=== PATIENT | female | born 1955 | race Caucasian/White ===

== ENCOUNTER 2018-07-13 11:25 | Inpatient (IN) | payer MEDICARE, OTHER ==
[2018-07-13 12:00] LABS: URINE SOURCE CLEAN C
[2018-07-13 12:02] LABS: % BASOPHILS 0.5 % (0.0-2.0); % EOSINOPHILS 1.7 % (0.0-5.0); % LYMPHOCYTES 19.8 % (20.0-50.0); % MONOCYTES 8.1 % (2.0-10.0); % NEUTROPHILS 69.9 % (40.0-80.0); EOSINOPHILE ABSOLUTE 0.2 Th/cmm (0.1-0.4); HEMATOCRIT 45.2 % (41.0-60); HEMOGLOBIN 14.7 gm/dL (12-16); LYMPHOCYTE ABSOLUTE 1.9 Th/cmm (1.5-3.0); MEAN CELL VOLUME 87.6 fl (81-100); MEAN CORPUSCULAR HEMOGLOBIN 28.5 pg (27.0-31.0); MEAN CORPUSCULAR HGB CONC 32.5 pg (28.0-36.0); MEAN PLATELET VOLUME 9.8 fl; MONOCYTE ABSOLUTE 0.8 Th/cmm (0.3-1.0); NEUTROPHILE ABSOLUTE 6.8 Th/cmm (1.8-8.0); PLATELET COUNT 323 Th/cmm (150-400); RED BLOOD COUNT 5.16 Mil/cmm (3.80-5.10); RED CELL DISTRIBUTION WIDTH 11.7 % (11.5-20.0); WHITE BLOOD COUNT 9.7 Th/cmm (4.8-10.8)
[2018-07-13 12:09] LABS: URINE BILIRUBIN NEGATIVE (NEGATIVE); URINE BLOOD NEGATIVE (NEGATIVE); URINE GLUCOSE (UA) NEGATIVE (NEGATIVE); URINE KETONE NEGATIVE (NEGATIVE); URINE LEUKOCYTE ESTERASE NEGATIVE (NEGATIVE); URINE NITRATE NEGATIVE (NEGATIVE); URINE PH 6.5 (4.6 - 8.0); URINE PROTEIN NEGATIVE (NEGATIVE); URINE UROBILINOGEN 0.2 E.U./dL (0.2 - 1.0)
[2018-07-13 12:13] LABS: URINE CLARITY CLEAR (CLEAR); URINE COLOR YELLOW; URINE MICROSCOPIC INDICATED? NO
--- NOTE | 2018-07-13 12:19 | ED Physician Chart ---
ED Chief Complaint/HPI - Patient Information Date Seen:: 07/13/18 Time Seen:: 11:45 Chief Complaint:: Agitation History of Present Illness:: onset x 3 days of agitation and aggressive behavior; no report of trauma, LOC, H /As, SIs, neck pain, cough, C/P, SOB, Abd. Pain, A/N/V/D/C, fever, chills, or urinary s/s; pt is post-menopausal; Allergies:: Allergies Allergy/AdvReac Type Severity Reaction Status Date / Time No Known Allergies Allergy Verified 07/13/18 11:48 Vitals:: Vital Signs - 8 hr 07/13/18 11:45 Temp 98.1 F HR 91 RR 18 BP 141/76 O2 Sat % 97 Historian:: Patient, Family Member Review:: Nurse's Note Reviewed ED Review of Systems - Review of Systems General/Constitutional: No fever, No chills, No weight loss, No weakness, No diaphoresis, No edema, No loss of appetite Skin: No skin lesions, No rash, No bruising Head: No headache, No light-headedness Eyes: No loss of vision, No pain, No diplopia ENT: No earache, No nasal drainage, No sore throat, No tinnitus Neck: No neck pain, No swelling, No thyromegaly, No stiffness, No mass noted Cardio Vascular: No chest pain, No palpitations, No PND, No orthopnea, No edema Pulmonary: No SOB, No cough, No sputum, No wheezing GI: No nausea, No vomiting, No diarrhea, No pain, No melena, No hematochezia, No constipation, No hematemesis G/U: No dysuria, No frequency, No hematuria, No nacturia [employer]: No vaginal discharge, No abnormal vaginal bleed, No contraction Musculoskeletal: No bone or joint pain, No back pain, No muscle pain Endocrine: No polyuria, No polydipsia Psychiatric: Prior psych history, No depression, Anxiety, No suicidal ideation, No homicidal ideation, Auditory hallucination, No visual hallucination Hematopoietic: No bruising, No lymphadenopathy Allergic/Immuno: No urticaria, No angioedema Neurological: No syncope, No focal symptoms, No weakness, No paresthesia, No headache, No seizure, No dizziness, No confusion, No vertigo ED Past Medical History - Past Medical History Obtainable: Yes Past Medical History: HTN, Asthma/COPD, Seizures Family History: HTN Social History: Non Smoker, Alcohol, No Drug Use, Single, Care Facility Surgical History: None Psychiatricy History: Schizophrenia Medication: Reviewed Family Medical History - Family Member Mother History Unknown: Yes ED Physical Exam - Physical Examination General/Constitutional: Awake, Well-developed, well-nourished, Alert, No distress, GCS 15, Non-toxic appearing, Ambulatory Head: Atraumatic Eyes: Lids, conjuctiva normal, PERRL, EOMI Skin: Nl inspection, No rash, No skin lesions, No ecchymosis, Well hydrated, No lymphadenopathy ENMT: External ears, nose nl, TM canals nl, Nasal exam nl, Lips, teeth, gums nl , Oropharynx nl, Tonsils nl Neck: Nontender, Full ROM w/o pain, No JVD, No nuchal rigidity, No bruit, No mass, No stridor Respiratory: Nl effort/Exclusion, Clear to Auscultation, No Wheeze/Rhonchi/Rales Cardio Vascular: RRR, No murmur, gallop, rubs, NL S1 S2, Carotid/Femoral/Distal pulses equal bilaterally GI: No tenderness/rebounding/guarding, No organomegaly, No hernia, Normal BS's, Nondistended, No mass/bruits, No McBurney tenderness Other GI comments:: no pulsatile masses : No CVA tenderness Extremities: No tenderness or effusion, Full ROM, normal strength in all extremities, No edema, Normal digits & nails Neuro/Psych: Alert/oriented, DTR's symmetric, Normal sensory exam, Normal motor strength, Judgement/insight normal, Mood normal, Normal gait, No focal deficits Other Neuro/Psych comments:: MSE: + Psychomotor Agitation; no SIs; Mood/Affect: Labile Misc: Normal back, No paraspinal tenderness ED Labs/Radiology/EKG Results - Lab Results Results: Laboratory Tests 07/13/18 07/13/18 11:45 11:50 WBC 9.7 RBC 5.16 H Hgb 14.7 Hct 45.2 MCV 87.6 MCH 28.5 MCHC Differential 32.5 RDW 11.7 Plt Count 323 MPV 9.8 Neutrophils % 69.9 Lymphocytes % 19.8 L Monocytes % 8.1 Eosinophils % 1.7 Basophils % 0.5 Urine Source CLEAN C Urine Color YELLOW Urine Clarity CLEAR Urine pH 6.5 Ur Specific [place] 1.020 Urine Protein NEGATIVE Urine Glucose (UA) NEGATIVE Urine Ketones NEGATIVE Urine Blood NEGATIVE Urine Nitrate NEGATIVE Urine Bilirubin NEGATIVE Urine Urobilinogen 0.2 Ur Leukocyte Esterase NEGATIVE Comments:: Reviewed - EKG Interpretations EKG Time:: 12:02 Rate & Rhythm: 85; NSR Comments:: non-specific st-t changes ED Septic Shock - . Is Septic Shock (SBP<90, OR Lactate>4 mmol\L) present?: No - <6hrs of presentation: Vital Signs: Vital Signs - 8 hr 07/13/18 11:45 Temp 98.1 F HR 91 RR 18 BP 141/76 O2 Sat % 97 ED Reassessment (Disposition) - Reassessment Reassessment Condition:: Improved - Diagnosis Diagnosis:: Dx: Agitation; Medical Clearance; Psychosis; Schizophrenia; Bipolar Disorder - Aftercare/Follow up Instructions Aftercare/Follow-Up Instructions:: Counseled pt regarding lab results/diagnosis & need follow up, Counseled pt & family regarding lab results/diagnosis & need follow up - Patient Disposition Discharge/Transfer:: Acute Care w/in this hosp Admitted to:: [facility] Condition at Disposition:: Stable, Improved
[2018-07-13 12:25] LABS: ALB/GLOB RATIO 1.4 (1.0-1.8); ALBUMIN 4.4 gm/dL (3.7-5.3); ALKALINE PHOSPHATASE 78 U/L (34-104); ANION GAP 13.3 (7.0-16.0); BILIRUBIN,TOTAL 0.5 mg/dL (0.3-1.0); BUN - UREA NITROGEN 11 mg/dL (7-25); CALCIUM SERUM 10.3 mg/dL (8.6-10.3); CARBON DIOXIDE 32.9 mEq/L (21.0-31.0); CHLORIDE 95 mEq/L (98-107); CHOLESTEROL 218 mg/dL (<200); CREATININE - SERUM 0.5 mg/dL (0.6-1.2); GFR AFRICAN-AMERICAN > 60.0 ml/min (>90); GFR NON AFRICAN-AMERICAN > 60.0 ml/min; GLUCOSE 110 mg/dL (70-105); HDL -HIGH DENSITY LIPOPROTEIN 44 mg/dL (23-92); POTASSIUM SERUM 4.2 mEq/L (3.5-5.1); SGOT 11 U/L (13-39); SGPT/ALT 13 U/L (7-52); SODIUM SERUM 137 mEq/L (136-145); TOTAL PROTEIN,SERUM 7.5 gm/dL (6.0-8.3); TRIGLYCERIDES 140 mg/dL (<150)
[2018-07-13 12:28] LABS: ACETAMINOPHEN < 10.0 ug/mL (10.0-30.0); SALICYLATES (ASPIRIN) < 25.0 mg/L (30.0-100.0)
[2018-07-13] MEDS ORDERED: Pneumococcal Vaccine 0.5 mL Vial IM ONE (14:37)
[2018-07-13 14:45] VITALS: BP 126/68
[2018-07-13] MEDS ORDERED: Ipratropium Neb 0.5 mg/2.5 mL UD HHN PRN (14:47)
[2018-07-13] MEDS ORDERED: Magnesium Hydroxide (MOM) 30 mL UDC PO PRN (15:00)
[2018-07-13] MEDS ORDERED: Maalox 30 mL Cup PO PRN (15:00)
[2018-07-13 15:18] LABS: CHOLESTEROL 217 mg/dL (<200); HDL -HIGH DENSITY LIPOPROTEIN 46 mg/dL (23-92); TRIGLYCERIDES 141 mg/dL (<150)
[2018-07-13] MEDS: Atorvastatin Calcium 10 MG TAB PO SCH (20:34)
[2018-07-14] MEDS: Pantoprazole 40 mg EC Tab PO SCH (09:01)
[2018-07-14] MEDS: Ferrous Sulfate 325 MG TAB PO SCH (09:01)
[2018-07-14] MEDS: Multivitamin Tab PO SCH (09:02)
--- NOTE | 2018-07-14 19:45 | History & Physical ---
ADMIT DATE: 07/14/2018 CHIEF COMPLAINT: Agitation. HISTORY OF PRESENT ILLNESS: The patient is a 63-year-old female with past medical history of hypertension, asthma, COPD, seizure disorder, admitted for agitation and aggressive behavior for last 3 days. It was not getting better with conservative management. The patient was brought to the ER for further admission to the [facility] and management. Otherwise, vitals were stable and labs shows no acute abnormality. PAST MEDICAL HISTORY: Hypertension, seizure disorder, COPD, asthma. ALLERGIES: NKDA. MEDICATIONS: See medication reconciliation sheet. FAMILY HISTORY: Mother had hypertension. SOCIAL HISTORY: The patient lives at a care facility. Single. Nonsmoker. No use of alcohol, no drug use. PAST SURGICAL HISTORY: None. PSYCHIATRIC HISTORY: Schizophrenia. REVIEW OF SYSTEMS: GENERAL: The patient has no fever, no chills, no generalized weakness. HEENT: No diplopia, no photophobia, no sore throat, no congestion. RESPIRATORY: No cough, no shortness of breath. CARDIOVASCULAR: No chest pain or palpitation. GASTROINTESTINAL: No nausea, no vomiting, no diarrhea, no constipation. GENITOURINARY: No dysuria. NEUROLOGIC: No headache, no dizziness, no focal weakness. PHYSICAL EXAMINATION: VITAL SIGNS: Shows temperature is 98.3, pulse 87, respiration is 16, blood pressure 107/61. GENERAL: The patient is comfortable, lying in the bed, not in acute distress. Well nourished, well developed. HEENT: Head normocephalic and atraumatic. Oral cavity moist, pink tongue. Eyes: No pallor, no icterus. PERRLA, EOMI. NECK: Supple, no JVD, no bruit. Trachea in midline. CHEST: Bilateral breath sounds. No crackles or wheezing. HEART: S1, S2 within normal limits. Regular rhythm. No murmur or gallop. ABDOMEN: Soft, nontender, nondistended. Bowel sounds present. EXTREMITIES: No cyanosis, no clubbing, no edema. NEUROLOGICAL: Alert and awake. LABORATORY DATA: Current lab shows WBC count is 9700, hemoglobin 14.7, hematocrit 45.2, platelets are 322,000. Neutrophil percentage 69.8%. Sodium 137, potassium 4.2, chloride 95, bicarbonate is 23, BUN is 11, creatinine 0.5, glucose is 110. RPR is nonreactive. Urinalysis negative. Nitrite negative leukoesterase. MRSA screen is negative. IMPRESSION: 1. Agitation. 2. Hypertension, well controlled. 3. Asthma, COPD. 4. Seizure disorder. RECOMMENDATION: Continue same management. JOB# [id number] MTDD
[2018-07-14] MEDS: Atorvastatin Calcium 10 MG TAB PO SCH (20:56)
--- NOTE | 2018-07-15 08:29 | Psychiatric Evaluation ---
DATE OF SERVICE: PSYCHIATRIC INITIAL EVALUATION AND MENTAL STATUS EXAM PATIENT'S AGE: 63-year-old SEX: Female. PHYSICIAN: Dr. Patino CHIEF COMPLAINT: Agitation and aggressive behavior. HISTORY OF PRESENT ILLNESS: The patient is a 63-year-old female who was admitted to the hospital because of increased agitation and aggressive behavior for 3 days prior to her admission. The patient also has not been able to follow directions and has been in irritable and angry mood. She also has been having mood swings and she also has been having agitation. The patient is living in [facility] and she has been combative there and she has been argumentative with the staff. PAST PSYCHIATRIC HISTORY: The patient has a history of agitation and aggressive behavior. PAST MEDICAL HISTORY: The patient has history of hypertension as well as seizure disorder, COPD and generalized weakness and the patient using a walker for walking. SOCIAL HISTORY: The patient lives in [facility]. No known alcohol or drug use. ALLERGIES: No known allergies. MENTAL STATUS EXAMINATION: The patient appears slightly older than stated age. Anxious. Irritable mood. Flat affect. Thought processes are circumstantial but no flight of ideas. The patient seems to be preoccupied, but denies any auditory or visual hallucinations or delusions. She denies any thoughts of suicide or homicide, but easily agitated. The patient is alert and oriented to the situation and time. Impaired immediate memory but intact recent and remote memories. Poor insight and poor judgment. She seems to be of average intelligence based on her verbal ability. ASSESSMENT: PRIMARY DIAGNOSIS: Schizophrenic disorder by history. Rule out bipolar disorder. TREATMENT PLAN: Monitor the patient's behavior and condition closely. Start individual as well as milieu psychotherapy. We will monitor psychotropic medications. ESTIMATED LENGTH OF STAY: 5-7 days. THE PATIENT'S STRENGTHS AND WEAKNESSES: The patient's strength is not clear at this time. Weaknesses are her ineffective coping. Also, her poor impulse control. AFTER DISCHARGE PLAN: Outpatient treatment and followup will continue as an outpatient. CRITERIA FOR DISCHARGE: The patient will not be psychotic or suicidal and will stabilize psychotropic medications and will establish outpatient treatment plans. [facility]# [id number]
[2018-07-15] MEDS: Ferrous Sulfate 325 MG TAB PO SCH (08:53)
[2018-07-15] MEDS: Pantoprazole 40 mg EC Tab PO SCH (08:53)
[2018-07-15] MEDS: Multivitamin Tab PO SCH (08:53)
--- NOTE | 2018-07-15 14:13 | Infectious Disease Prog Note ---
Infectious Disease Subjective - Review of Systems Service Date: 07/15/18 Subjective: There is no new change, no fever. Infectious Disease Objective - Results Result Diagrams: 07/13/18 11:50 07/13/18 11:50 Recent Labs: Laboratory Last Values WBC 9.7 Th/cmm (4.8-10.8) 07/13/18 11:50 RBC 5.16 Mil/cmm (3.80-5.10) H 07/13/18 11:50 Hgb 14.7 gm/dL (12-16) 07/13/18 11:50 Hct 45.2 % (41.0-60) 07/13/18 11:50 MCV 87.6 fl (81-100) 07/13/18 11:50 MCH 28.5 pg (27.0-31.0) 07/13/18 11:50 MCHC Differential 32.5 pg (28.0-36.0) 07/13/18 11:50 RDW 11.7 % (11.5-20.0) 07/13/18 11:50 Plt Count 323 Th/cmm (150-400) 07/13/18 11:50 MPV 9.8 fl 07/13/18 11:50 Neutrophils % 69.9 % (40.0-80.0) 07/13/18 11:50 Lymphocytes % 19.8 % (20.0-50.0) L 07/13/18 11:50 Monocytes % 8.1 % (2.0-10.0) 07/13/18 11:50 Eosinophils % 1.7 % (0.0-5.0) 07/13/18 11:50 Basophils % 0.5 % (0.0-2.0) 07/13/18 11:50 Sodium 137 mEq/L (136-145) 07/13/18 11:50 Potassium 4.2 mEq/L (3.5-5.1) 07/13/18 11:50 Chloride 95 mEq/L (98-107) L 07/13/18 11:50 Carbon Dioxide 32.9 mEq/L (21.0-31.0) H 07/13/18 11:50 Anion Gap 13.3 (7.0-16.0) 07/13/18 11:50 BUN 11 mg/dL (7-25) 07/13/18 11:50 Creatinine 0.5 mg/dL (0.6-1.2) L 07/13/18 11:50 Est GFR ( Amer) > 60.0 ml/min (>90) 07/13/18 11:50 Est GFR (Non-Af Amer) > 60.0 ml/min 07/13/18 11:50 BUN/Creatinine Ratio 22.0 07/13/18 11:50 Glucose 110 mg/dL (70-105) H 07/13/18 11:50 POC Glucose 131 MG/DL (70 - 105) H 07/13/18 14:26 Calcium 10.3 mg/dL (8.6-10.3) 07/13/18 11:50 Total Bilirubin 0.5 mg/dL (0.3-1.0) 07/13/18 11:50 AST 11 U/L (13-39) L 07/13/18 11:50 ALT 13 U/L (7-52) 07/13/18 11:50 Alkaline Phosphatase 78 U/L (34-104) 07/13/18 11:50 Troponin I < 0.01 ng/mL (0.01-0.05) L 07/13/18 11:50 Total Protein 7.5 gm/dL (6.0-8.3) 07/13/18 11:50 Albumin 4.4 gm/dL (3.7-5.3) 07/13/18 11:50 Globulin 3.1 gm/dL 07/13/18 11:50 Albumin/Globulin Ratio 1.4 (1.0-1.8) 07/13/18 11:50 Triglycerides 141 mg/dL (<150) 07/13/18 11:50 Cholesterol 217 mg/dL (<200) H 07/13/18 11:50 LDL Cholesterol Direct 161 mg/dL (75-193) 07/13/18 11:50 HDL Cholesterol 46 mg/dL (23-92) 07/13/18 11:50 TSH 0.85 uIU/ml (0.34-5.60) 07/13/18 11:50 Urine Source CLEAN C 07/13/18 11:45 Urine Color YELLOW 07/13/18 11:45 Urine Clarity CLEAR (CLEAR) 07/13/18 11:45 Urine pH 6.5 (4.6 - 8.0) 07/13/18 11:45 Ur Specific [place] 1.020 (1.005-1.030) 07/13/18 11:45 Urine Protein NEGATIVE mg/dL (NEGATIVE) 07/13/18 11:45 Urine Glucose (UA) NEGATIVE mg/dL (NEGATIVE) 07/13/18 11:45 Urine Ketones NEGATIVE mg/dL (NEGATIVE) 07/13/18 11:45 Urine Blood NEGATIVE (NEGATIVE) 07/13/18 11:45 Urine Nitrate NEGATIVE (NEGATIVE) 07/13/18 11:45 Urine Bilirubin NEGATIVE (NEGATIVE) 07/13/18 11:45 Urine Urobilinogen 0.2 E.U./dL (0.2 - 1.0) 07/13/18 11:45 Ur Leukocyte Esterase NEGATIVE (NEGATIVE) 07/13/18 11:45 Salicylates < 25.0 mg/L (30.0-100.0) L 07/13/18 11:50 Acetaminophen < 10.0 ug/mL (10.0-30.0) L 07/13/18 11:50 Ethyl Alcohol < 10 mg/dL (0-10) 07/13/18 11:50 RPR NONREACTIVE (NONREACTIVE) 07/13/18 11:50 - Physical Exam Vitals and I&O: Vital Signs Temp 97.8 F 07/15/18 06:36 Pulse 87 07/15/18 08:50 Resp 18 07/15/18 07:15 BP 133/72 07/15/18 08:53 Pulse Ox 96 07/15/18 07:15 Intake & Output 07/14/18 07/15/18 07/15/18 18:59 06:59 18:59 Intake Total 240 Balance 240 Intake: Oral 240 Other: # Voids 2 2 # Bowel Movements 0 Active Medications: Current Medications Acetaminophen (Tylenol) 650 mg PO Q4HR PRN PRN Reason: Mild Pain / Temp above 100 Stop: 09/11/18 14:59 Al Hydrox/Mg Hydrox/Simethicone (Maalox) 30 ml PO Q4HR PRN PRN Reason: GI DISTRESS Stop: 09/11/18 14:59 Aspirin (Ecotrin) 81 mg PO DAILY REJI Stop: 09/12/18 08:59 Last Admin: 07/15/18 08:51 Dose: 81 mg Atorvastatin Calcium (Lipitor) 10 mg PO HS [facility]; Protocol Stop: 09/11/18 20:59 Last Admin: 07/14/18 20:56 Dose: 10 mg Bisacodyl (Dulcolax 10 Mg Supp) 10 mg RC DAILY PRN PRN Reason: Constipation Stop: 09/11/18 14:46 Docusate Sodium (Colace) 100 mg PO BID REJI Stop: 09/11/18 16:59 Last Admin: 07/15/18 08:50 Dose: 100 mg Ferrous Sulfate (Iron) 325 mg PO DAILY REJI Stop: 09/12/18 08:59 Last Admin: 07/15/18 08:53 Dose: 325 mg Gabapentin (Neurontin) 300 mg PO BID [facility] Stop: 09/11/18 16:59 Last Admin: 07/15/18 08:53 Dose: 300 mg Hydrochlorothiazide (Hctz) 25 mg PO DAILY [facility] Stop: 09/12/18 08:59 Last Admin: 07/15/18 08:53 Dose: 25 mg Ipratropium [place] (Atrovent Neb 0.5mg/2.5ml) 0.5 mg HHN Q6HR PRN PRN Reason: Shortness of Breath or Wheeze Stop: 09/11/18 14:46 Levetiracetam (Keppra) 500 mg PO BID [facility] Stop: 09/11/18 16:59 Last Admin: 07/15/18 08:53 Dose: 500 mg Lisinopril (Zestril) 20 mg PO DAILY [facility] Stop: 09/12/18 08:59 Last Admin: 07/15/18 08:50 Dose: 20 mg Lorazepam (Ativan) 0.5 mg PO Q4HR PRN; Protocol PRN Reason: Anxiety Stop: 09/11/18 15:01 Magnesium Hydroxide (Milk Of Magnesia) 30 ml PO HS PRN PRN Reason: Constipation Multivitamins/Vitamin C (Theragran) 1 tab PO DAILY [facility] Stop: 09/12/18 08:59 Last Admin: 07/15/18 08:53 Dose: 1 tab Pantoprazole Sodium (Protonix) 40 mg PO DAILY [facility] Stop: 09/12/18 08:59 Last Admin: 07/15/18 08:53 Dose: 40 mg Quetiapine Fumarate (Seroquel) 37.5 mg PO BID [facility]; Protocol Stop: 09/13/18 08:59 Last Admin: 07/15/18 08:51 Dose: 37.5 mg Zolpidem Tartrate (Ambien) 5 mg PO HS PRN PRN Reason: Insomnia Stop: 09/11/18 14:59 General: no acute distress, well developed, well nourished HEENT: atraumatic, normocephalic, PERRLA, EOMI Neck: supple, no thyromegaly Cardiovascular: S1S2, regular Lungs: clear to auscultation bilaterally, clear to percussion Abdomen: soft, no tender, no distended, no mass, no hepatomegaly Extremities: no cyanosis, no clubbing, no edema Neurological: awake, alert, oriented Skin: intact Infectious Disease Assmt/Plan - Assessment Assessment: 1. Agitation. 2. Hypertension, well controlled. 3. Asthma, COPD. 4. Seizure disorder. - Plan Plan: CPM.
--- NOTE | 2018-07-15 14:59 | Progress Notes ---
DATE: SUBJECTIVE: Chart reviewed and the patient interviewed. Also discussed the patient's condition with the staff and reviewed records and labs. The patient is slightly calmer, but she is still easily agitated and she still has episodes of irritability and anger. The patient also is withdrawn. She also is feeling hopeless. She also gets angry when her demands are not met immediately. Otherwise, the patient is compliant with taking her medications with no side effects of medications. ASSESSMENT: The patient is still easily agitated and confused. TREATMENT PLAN: We will continue monitoring her behavior and her condition closely. Also, we will increase Seroquel to 37.5 mg twice a day. Also, continue to monitor behavior closely and adjusting psychotropic medications and followup. [facility]# [id number]
== END 2018-07-15 16:39 | disposition short-term general hospital (02) | DRG 885 ==
LOC: ER 11:25 → GERO2 13:17
PROVIDERS: ADMIT Psychiatry & Neurology Psychiatry; ATTEND Psychiatry & Neurology Psychiatry
DX: F20.9 Schizophrenia, unspecified (principal); I10 Essential (primary) hypertension; J44.9 Chronic obstructive pulmonary disease, unspecified; F29 Unspecified psychosis not due to a substance or known physiological condition; F31.9 Bipolar disorder, unspecified; G40.909 Epilepsy, unspecified, not intractable, without status epilepticus; Z82.49 Family history of ischemic heart disease and other diseases of the circulatory system
CPT/HCPCS: 36415-UA; 80053-TC; 80061-TC; 80320-TC; 80329-TC; 81003-TC; 82948-90; 83036-90; 84443-TC; 84484-TC; 85025-TC; 86592-TC; 90732; 93005; 94760; J7030; Z7610

== ENCOUNTER 2018-07-15 16:51 | Inpatient (IN) | payer MEDICARE, OTHER ==
[2018-07-15 19:00] LABS: PROTHROMBIN TIME (TEST) 10.4 SECONDS (9.5-11.5)
[2018-07-15 19:03] LABS: ALB/GLOB RATIO 1.5 (1.0-1.8); ALBUMIN 4.2 gm/dL (3.7-5.3); ALKALINE PHOSPHATASE 84 U/L (34-104); ANION GAP 13.1 (7.0-16.0); BILIRUBIN,TOTAL 0.5 mg/dL (0.3-1.0); BUN - UREA NITROGEN 21 mg/dL (7-25); CHLORIDE 90 mEq/L (98-107); CREATININE - SERUM 0.9 mg/dL (0.6-1.2); CREATININE KINASE 17 U/L (30-223); GFR AFRICAN-AMERICAN > 60.0 ml/min (>90); GFR NON AFRICAN-AMERICAN > 60.0 ml/min; GLUCOSE 148 mg/dL (70-105); POTASSIUM SERUM 4.1 mEq/L (3.5-5.1); SGOT 11 U/L (13-39); SGPT/ALT 10 U/L (7-52); SODIUM SERUM 131 mEq/L (136-145); TOTAL PROTEIN,SERUM 7.1 gm/dL (6.0-8.3)
[2018-07-15 19:15] LABS: TROP I 0.04 ng/mL (0.01-0.05)
[2018-07-15] MEDS: cefTRIAXone 1 GM in Sodium Chloride 0.9% 50 ML IV SCH (21:00)
[2018-07-15 23:29] LABS: URINE SOURCE CLEAN C
[2018-07-15 23:30] LABS: URINE BILIRUBIN NEGATIVE (NEGATIVE); URINE BLOOD NEGATIVE (NEGATIVE); URINE GLUCOSE (UA) NEGATIVE (NEGATIVE); URINE KETONE TRACE mg/dL (NEGATIVE); URINE LEUKOCYTE ESTERASE NEGATIVE (NEGATIVE); URINE NITRATE NEGATIVE (NEGATIVE); URINE PH 5.5 (4.6 - 8.0); URINE PROTEIN NEGATIVE (NEGATIVE); URINE UROBILINOGEN 0.2 E.U./dL (0.2 - 1.0)
[2018-07-15 23:58] LABS: URINE CLARITY CLEAR (CLEAR); URINE COLOR STRAW; URINE MICROSCOPIC INDICATED? YES
[2018-07-16] LABS: URINE BACTERIA OCCASIONAL /hpf (NONE SEEN); URINE EPITHELIAL CELLS RARE /lpf (FEW); URINE RBC NONE SEEN /hpf (0-5); URINE WBC 0-2 /hpf (0-5)
[2018-07-16] MEDS: Sodium Chloride 0.9% 1,000 ML IV SCH ×3 (01:15→17:13)
[2018-07-16 06:19] LABS: % BASOPHILS 0.3 % (0.0-2.0); % EOSINOPHILS 2.5 % (0.0-5.0); % LYMPHOCYTES 18.4 % (20.0-50.0); % MONOCYTES 8.8 % (2.0-10.0); EOSINOPHILE ABSOLUTE 0.3 Th/cmm (0.1-0.4); HEMATOCRIT 39.5 % (41.0-60); HEMOGLOBIN 13.2 gm/dL (12-16); LYMPHOCYTE ABSOLUTE 2.5 Th/cmm (1.5-3.0); MEAN CELL VOLUME 86.5 fl (81-100); MEAN CORPUSCULAR HEMOGLOBIN 28.9 pg (27.0-31.0); MEAN CORPUSCULAR HGB CONC 33.4 pg (28.0-36.0); MONOCYTE ABSOLUTE 1.2 Th/cmm (0.3-1.0); NEUTROPHILE ABSOLUTE 9.5 Th/cmm (1.8-8.0); RED BLOOD COUNT 4.57 Mil/cmm (3.80-5.10); RED CELL DISTRIBUTION WIDTH 11.7 % (11.5-20.0); WHITE BLOOD COUNT 13.5 Th/cmm (4.8-10.8)
[2018-07-16 06:26] LABS: MEAN PLATELET VOLUME 10.2 fl; PLATELET COUNT 286 Th/cmm (150-400)
[2018-07-16 07:17] LABS: ANION GAP 8.4 (7.0-16.0); BUN - UREA NITROGEN 15 mg/dL (7-25); CALCIUM SERUM 9.6 mg/dL (8.6-10.3); CARBON DIOXIDE 38.4 mEq/L (21.0-31.0); CHLORIDE 91 mEq/L (98-107); CREATININE - SERUM 1.1 mg/dL (0.6-1.2); GFR AFRICAN-AMERICAN > 60.0 ml/min (>90); GFR NON AFRICAN-AMERICAN 53.5 ml/min; GLUCOSE 100 mg/dL (70-105); POTASSIUM SERUM 3.8 mEq/L (3.5-5.1); SODIUM SERUM 134 mEq/L (136-145)
[2018-07-16 07:37] VITALS: BP 99/50
--- NOTE | 2018-07-16 08:24 | Diagnostic Imaging Report ---
Portable chest x-ray HISTORY: Shortness of breath Prior exams are not available for comparison. The heart size is normal. There are diffuse bilateral interstitial infiltrates. The overall appearance suggests possible chronic change. Pneumonia cannot be excluded. Clinical correlation is needed. No pleural fluid. No hilar or mediastinal abnormalities. IMPRESSION: 1. Bilateral interstitial infiltrates. The overall appearance suggests a possible chronic etiology. Pneumonia cannot be excluded. Clinical correlation is needed.
[2018-07-16] MEDS ORDERED: Probiotic Screen MC PRN (14:24)
[2018-07-16] MEDS: cefTRIAXone 1 GM in Sodium Chloride 0.9% 50 ML IV SCH (20:21)
[2018-07-17] MEDS: Sodium Chloride 0.9% 1,000 ML IV SCH (04:42)
[2018-07-17 05:33] LABS: % BASOPHILS 0.3 % (0.0-2.0); % EOSINOPHILS 3.7 % (0.0-5.0); % LYMPHOCYTES 19.8 % (20.0-50.0); % MONOCYTES 8.1 % (2.0-10.0); % NEUTROPHILS 68.1 % (40.0-80.0); EOSINOPHILE ABSOLUTE 0.3 Th/cmm (0.1-0.4); HEMATOCRIT 38.9 % (41.0-60); HEMOGLOBIN 12.8 gm/dL (12-16); LYMPHOCYTE ABSOLUTE 1.8 Th/cmm (1.5-3.0); MEAN CELL VOLUME 87.8 fl (81-100); MEAN PLATELET VOLUME 9.3 fl; MONOCYTE ABSOLUTE 0.7 Th/cmm (0.3-1.0); NEUTROPHILE ABSOLUTE 6.4 Th/cmm (1.8-8.0); PLATELET COUNT 255 Th/cmm (150-400); RED BLOOD COUNT 4.43 Mil/cmm (3.80-5.10); RED CELL DISTRIBUTION WIDTH 11.8 % (11.5-20.0); WHITE BLOOD COUNT 9.2 Th/cmm (4.8-10.8)
--- NOTE | 2018-07-17 05:39 | History & Physical ---
ADMIT DATE: 07/16/2018 CHIEF COMPLAINT: Low blood pressure. HISTORY OF PRESENT ILLNESS: The patient is a 63-year-old female with past medical history of hypertension, seizure disorder, COPD, asthma, admitted to Ger[facility] Unit on 07/14/2018 for agitation, yesterday she dropped her systolic blood pressure to 70s. I was called stat and the patient was transferred to the ICU. In the ICU, the patient's systolic blood pressure was in 90s. So, the patient has definite hypertension. IV fluid was started. Sepsis workup was performed. EKG and cardiac markers were done. Cardiology consultation was called and the patient was started on IV fluid, normal saline at 125 mL per hour. So far, the patient has no fever. The patient is very alert and awake. Rocephin was started empirically. PAST MEDICAL HISTORY: Includes hypertension, seizure disorder, COPD, asthma. ALLERGIES: NKDA. MEDICATIONS: As per medication reconciliation sheet. FAMILY HISTORY: Mother had hypertension. SOCIAL HISTORY: The patient lives at a care facility. Single. Nonsmoker, no alcohol use, no drug use. PAST SURGICAL HISTORY: None. PSYCHIATRIC HISTORY: Schizophrenia. REVIEW OF SYSTEMS: GENERAL: The patient has no fever, no chills, no generalized weakness. HEENT: No diplopia, no photophobia, no sore throat. RESPIRATORY: No cough, no shortness of breath. CARDIOVASCULAR: No chest pain or palpitation. GASTROINTESTINAL: No nausea, no vomiting. No diarrhea or constipation. RESPIRATORY: The patient has no nausea, no vomiting. The patient has watery diarrhea. GENITOURINARY: No dysuria. NEUROLOGIC: No headache, no dizziness. PHYSICAL EXAMINATION: VITAL SIGNS: Current vital signs shows temperature is 98 degrees Fahrenheit, pulse 96, respiration 21, blood pressure 121/71. CONSTITUTIONAL: The patient comfortable lying in the bed, not in acute distress. HEENT: Head is normocephalic, atraumatic. Oral cavity moist, pink tongue. NECK: Supple, no JVD, no carotid bruit. Trachea in midline. CHEST: Bilateral breath sounds. Occasional crackles. HEART: S1, S2 within normal limits. Regular rhythm. No murmur, no gallop. ABDOMEN: Soft, nontender, nondistended. Bowel sounds present. EXTREMITIES: No cyanosis, no clubbing, no edema. NEUROLOGICAL: Alert and awake, oriented x 3. LABORATORY DATA: Current lab shows WBC count is 13,500, hemoglobin 13.2, hematocrit 39.5, platelets are 286,000, and neutrophil is 70%. Sodium 134, potassium 3.8, chloride 91, bicarbonate is 38.4, BUN is 15, creatinine 1.1 and glucose is 100. Urinalysis showed negative nitrite, negative glucose, negative protein and negative glucose, wbc's 0-2, rbc's not seen. Chest x-ray shows chronic interstitial changes versus pneumonia. IMPRESSION: 1. Hypertension, unknown etiology at this time medication versus sepsis versus cardiogenic. 2. Schizophrenia. 3. History of hypertension. 4. History of seizure disorder. 5. COPD. 6. Agitation. 7. Leukocytosis. We will monitor CBC again. ____. Consultation was called with Dr. José Miguel Tomas and if cleared we will stop with fluid now. Her blood pressure is better now. Blood pressure remained stable and cleared by Dr. José Miguel Tomas. We will discharge the patient to [facility] again. JOB# [id number]
--- NOTE | 2018-07-17 06:08 | Consultation ---
DATE OF CONSULTATION: 07/16/[address] Ricardo Tomas. HISTORY AND PHYSICAL: This is a -[id number] obese female patient who was in [facility]. After adjustment of the Seroquel, the patient became hypotensive and the patient is transferred to ICU. At the present time, the blood pressure is 150/80. The patient is asymptomatic. PAST MEDICAL HISTORY: Hypertension, seizure disorder, COPD, asthma. FAMILY HISTORY: Unremarkable. SOCIAL HISTORY: No history of smoking, alcohol abuse. ALLERGIES: None. PHYSICAL EXAMINATION: VITAL SIGNS: Blood pressure 150/80, pulse 70, respirations 20. HEENT: Head: Normocephalic. No lumps or bumps. Eyes: Pupils equal, reactive to light. Fundi show AV nicking. Sclerae white. Conjunctivae pink. NECK: Carotid 2+. Normal upstroke. JVD flat. Thyroid not palpable. Lymph nodes not palpable. CHEST: Shows increased AP diameter. No kyphosis, scoliosis. LUNGS: Bilateral bronchovesicular breath sounds. HEART: PMI fifth intercostal space with lateral to midclavicular line. S1, S2. No S3, S4. Soft systolic murmur. ABDOMEN: Soft. Liver, spleen not palpable. No organomegaly. Bowel sounds active. NEUROLOGIC: Unremarkable. EXTREMITIES: Peripheral pulses 2+. No pedal edema. CLINICAL IMPRESSION: 1. Hypotension, resolved secondary to Seroquel. 2. Hypertension, seizure disorder, chronic obstructive pulmonary disease, asthma. The patient has aggressive behavior. The patient is clinically stable to be transferred back to [facility]. JOB# [id number]
[2018-07-17 06:27] LABS: ANION GAP 12.6 (7.0-16.0); BUN - UREA NITROGEN 9 mg/dL (7-25); CALCIUM SERUM 9.5 mg/dL (8.6-10.3); CARBON DIOXIDE 33.6 mEq/L (21.0-31.0); CHLORIDE 95 mEq/L (98-107); CREATININE - SERUM 0.4 mg/dL (0.6-1.2); GFR AFRICAN-AMERICAN > 60.0 ml/min (>90); GFR NON AFRICAN-AMERICAN > 60.0 ml/min; GLUCOSE 115 mg/dL (70-105); POTASSIUM SERUM 4.2 mEq/L (3.5-5.1); SODIUM SERUM 137 mEq/L (136-145)
[2018-07-17] MEDS ORDERED: Lactobacillus Rhamnosus GG 15 Billion CFU CAP.SPRINK PO SCH (09:00)
[2018-07-17] MEDS: cefTRIAXone 1 GM in Sodium Chloride 0.9% 50 ML IV SCH (20:09)
--- NOTE | 2018-07-20 17:42 | Cardiology ---
07/16/2018 PATIENT OF: Dr. Ricardo Tomas. M-MODE ECHOCARDIOGRAM: Mitral valve, anterior leaflet of mitral valve shows normal excursion, EF velocity. Posterior leaflet of the mitral valve shows normal excursion. Left ventricular posterior wall shows increased thickness, normal excursion. Interventricular septum shows increased thickness, normal excursion, hypertrophy of the left ventricle, ejection fraction 64%. Left atrium normal. Aortic root shows normal dimension, normal excursion of aortic leaflets. CONCLUSION: Minimal hypertrophy of the left ventricle, ejection fraction 64%. 2D Echo: Long axis view showed normal sized left ventricle with minimal hypertrophy of the left ventricle. Left atrium normal. Aortic root shows normal dimension, normal excursion of aortic leaflets. Short axis view of mitral valve normal. Short axis view of aortic valve normal. Apical four chamber view showed normal sized left ventricle with hypertrophy of the left ventricle. Left atrium normal. Right ventricular cavity normal. Right atrium normal. CONCLUSION: Minimal hypertrophy of the left ventricle, ejection fraction 64%. Doppler study shows trace mitral regurgitation, mild tricuspid regurgitation, right ventricular systolic pressure of 49 mmHg with mild pulmonary hypertension. [facility]# [id number]
--- NOTE | 2018-07-22 12:36 | Discharge Summary ---
DATE OF DISCHARGE: 07/18/2018 CHIEF COMPLAINT: Low blood pressure. HISTORY OF PRESENT ILLNESS AND HOSPITAL COURSE: The patient is a 63-year-old female with a past medical history of hypertension, seizure disorder, COPD, asthma, admitted to [facility] on 07/14/2018 for agitation. She dropped her systolic blood pressure to 70s. I was called stat and the patient was transferred to the ICU. The patient's blood pressure was in 90s. So, the patient had hypotension. IV fluid was started. Sepsis workup was performed and EKG and cardiac markers were done. Cardiology consultation was called. The patient had received IV fluid for almost more than one day and blood pressure improved. The patient was transferred back to [facility]. DISCHARGE CONDITION: Stable. DISCHARGE DISPOSITION: [facility]. DISCHARGE MEDICATIONS: As per medication reconciliation sheet. JOB# [id number]
== END 2018-07-17 21:27 | DRG 312 ==
LOC: ICU 16:51
PROVIDERS: ADMIT Internal Medicine Infectious Disease; ATTEND Internal Medicine Infectious Disease
DX: I95.2 Hypotension due to drugs (principal); J84.9 Interstitial pulmonary disease, unspecified; E87.1 Hypo-osmolality and hyponatremia; E66.9 Obesity, unspecified; G40.909 Epilepsy, unspecified, not intractable, without status epilepticus; J44.9 Chronic obstructive pulmonary disease, unspecified; T43.595A Adverse effect of other antipsychotics and neuroleptics, initial encounter; Y92.89 Other specified places as the place of occurrence of the external cause; I10 Essential (primary) hypertension; F20.9 Schizophrenia, unspecified; Z68.35 Body mass index [BMI] 35.0-35.9, adult
CPT/HCPCS: 36415-UA; 71045-TC; 80048-TC; 80053-TC; 81001-TC; 82550-TC; 83605; 84484-TC; 85025-TC; 85610-TC; 85730-TC; 93005; J0696; J7030; Z7610

== ENCOUNTER 2018-07-17 21:28 | Inpatient (IN) | payer MEDICARE, OTHER ==
[2018-07-18 01:13] VITALS: BP 141/76
[2018-07-18] MEDS ORDERED: Magnesium Hydroxide (MOM) 30 mL UDC PO PRN (01:23)
[2018-07-18] MEDS ORDERED: Maalox 30 mL Cup PO PRN (01:23)
[2018-07-18] MEDS ORDERED: Ipratropium Neb 0.5 mg/2.5 mL UD HHN PRN (01:26)
[2018-07-18] MEDS ORDERED: ARIPIPRAZOLE 400 MG IM SCH (01:30)
[2018-07-18 06:38] LABS: CHOLESTEROL 151 mg/dL (<200); HDL -HIGH DENSITY LIPOPROTEIN 41 mg/dL (23-92); TRIGLYCERIDES 96 mg/dL (<150)
[2018-07-18] MEDS: Pantoprazole 40 mg EC Tab PO SCH (06:40)
[2018-07-18] MEDS ORDERED: SALMETEROL XINAFOATE 50 MCG IH SCH (09:00)
[2018-07-18] MEDS ORDERED: Non-Formulary Item 1 EA (Thiamine Hcl [Thiamine Hcl] 100 MG) PO SCH (09:00)
[2018-07-18] MEDS ORDERED: Non-Formulary Item 1 EA (Lactulose [Lactulose] 10 GM) PO SCH (09:00)
[2018-07-18] MEDS: Ferrous Sulfate 325 MG TAB PO SCH (09:41)
[2018-07-18] MEDS: Multivitamin Tab PO SCH (09:41)
[2018-07-18] MEDS: Lactulose 10 Gm/15 mL 30mL UDC PO SCH (09:41)
[2018-07-18] MEDS: Atorvastatin Calcium 10 MG TAB PO SCH (20:58)
[2018-07-18] MEDS ORDERED: Non-Formulary Item 1 EA (Temazepam [Restoril*] 7.5 MG) PO SCH (21:00)
[2018-07-18] MEDS ORDERED: Non-Formulary Item 1 EA (Trazodone Hcl [Trazodone Hcl] 100 MG) PO SCH (21:00)
--- NOTE | 2018-07-19 05:14 | History & Physical ---
ADMIT DATE: 07/18/2018 CHIEF COMPLAINT: Agitation. HISTORY OF PRESENT ILLNESS: The patient is a 63-year-old female with a past medical history of hypertension, seizure disorder, COPD, asthma, initially admitted to [facility] on 07/14/2018 for agitation. However, on 07/15/2018, she dropped her blood pressure to 70s. So, the patient was transferred to the ICU. The patient was given fluid boluses and IV fluid. Within 24 hours, she did well. So on 07/17/2018, the patient was discharged back to [facility] for continuation of care for agitation. PAST MEDICAL HISTORY: Hypertension, seizure disorder, COPD, asthma. ALLERGIES: NKDA. MEDICATIONS: As per medication reconciliation sheet. FAMILY HISTORY: Mother has hypertension. SOCIAL HISTORY: The patient lives at a care facility. Single. Nonsmoker. No alcohol, no drug use. PAST SURGICAL HISTORY: None. PAST PSYCHIATRIC HISTORY: Schizophrenia. REVIEW OF SYSTEMS: GENERAL: The patient has no fever, no chills, no generalized weakness. HEENT: No diplopia, no photophobia, no sore throat. RESPIRATORY: No cough, no shortness of breath. CARDIOVASCULAR: No chest pain or palpitation. GASTROINTESTINAL: No nausea, no vomiting, no diarrhea, no constipation. GENITOURINARY: No dysuria. NEUROLOGIC: No headache, no dizziness, no focal weakness. PHYSICAL EXAMINATION: CURRENT VITAL SIGNS: Shows temperature is 97.7 degrees Fahrenheit, pulse 76, respirations 18, blood pressure 92/54. GENERAL: The patient is comfortable lying in the bed, not in acute distress. HEENT: Head is normocephalic, atraumatic. Oral cavity moist, pink tongue. Eyes: Pallor is present, no icterus. PERRLA, EOMI. NECK: Supple, no JVD, no bruit. Trachea in midline. CHEST: Bilateral breath sounds. No crackles or wheezing. HEART: S1, S2 within normal limits. Regular rhythm. No murmur, no gallop. ABDOMEN: Soft, nontender, nondistended. Bowel sounds present. EXTREMITIES: No cyanosis, no clubbing, no edema. NEUROLOGIC: Alert, awake, oriented x 3. LABORATORY DATA: Reviewed. WBC count 9200 on 07/17/2018 and the creatinine was 0.4. IMPRESSION: 1. Agitation. 2. Hypertension. 3. Chronic obstructive pulmonary disease. 4. Seizure disorder. 5. Hypertension, resolved. RECOMMENDATIONS: Continue same treatment as per the Psych telecom sales consultant. Dr. Camp will take over the case from tomorrow. JOB# [id number]
--- NOTE | 2018-07-19 06:27 | Consultation ---
DATE OF CONSULTATION: 07/18/[address] Patino. The patient was seen and evaluated. The patient's chart reviewed. CHIEF COMPLAINT: " I don't why." HISTORY OF PRESENT ILLNESS: She is a 63-year-old female who was initially in [facility], transferred to the ICU and medically cleared and transferred back from the ICU to the [facility] today. Today on [id number] evaluation, the patient is awake, but she reports she does not know why she is here, then she starts telling that she has been depressed and drinking and she feels very distressful and sad and depressed, "maybe I am suicidal." Labs were reviewed. Current medical problems, medical team pending evaluation. CURRENT MEDICATIONS: Lipitor, Colace, Neurontin, hydrochlorothiazide, ____, Keppra, Zestril, Ativan, Seroquel 37.5 b.i.d., Restoril 7.5, and trazadone. CURRENT MEDICAL PROBLEMS: Includes high cholesterol, history of seizure disorder, high blood pressure, neuropathy, and anemia. ALLERGIES TO MEDICATIONS: NKDA. LEGAL HISTORY: None. FAMILY PSYCHIATRIC HISTORY: Noncontributory. SOCIAL HISTORY: She reports she lives on her own. MENTAL STATUS EXAMINATION: Calm, anxious, sad, depressed, little to suicidal ideation, but poor insight, judgment, and impulse control. PSYCHOSOCIAL AND MENTAL HEALTH HISTORY: Lives alone. She reports using alcohol, but does not disclose how much she has been drinking. Denies any illicit drug use. ASSESSMENT AND PLAN: The patient is a 63-year-old female with a history of depression, alcohol use, guarded, minimizing disengaged, does not give much of information in regards to her mood. We will continue with current medication regimen and her dose of the Abilify 400 mg q. monthly. PLAN: 1. Admit to the unit. 2. Continue with the current medication regimen. We will obtain more collateral baseline information, may consider antidepressant in the next 24 hours once we get further collateral information from the patient. Estimated stay between 3-7 days. DISCHARGE CRITERIA: Demonstrate euthymic mood with no suicidal or homicidal ideation. JOB# [id number]
[2018-07-19] MEDS: Pantoprazole 40 mg EC Tab PO SCH (06:57)
[2018-07-19] MEDS: Ferrous Sulfate 325 MG TAB PO SCH (10:58)
[2018-07-19] MEDS: Multivitamin Tab PO SCH (10:59)
[2018-07-19] MEDS: Lactulose 10 Gm/15 mL 30mL UDC PO SCH (11:01)
--- NOTE | 2018-07-19 20:17 | Progress Notes ---
DATE: 07/19/2018 SUBJECTIVE: Chart reviewed and the patient interviewed. Also, discussed the patient's condition with the staff and reviewed records and labs. The patient has increased in her mood swings. The patient also is still isolative and stays in her bed most of the time. On the other hand, the patient is not as combative and she seems to be calmer and less irritable and less agitated. She also is interacting more. ASSESSMENT: The patient still has mood swings, but still irritable and combative at times. TREATMENT PLAN: Continue to monitor her behavior closely. Also, continue current medications, which include Keppra, Seroquel and trazodone and will continue to follow up. [facility]# [id number]
[2018-07-19] MEDS: Atorvastatin Calcium 10 MG TAB PO SCH (20:40)
[2018-07-20] MEDS: Pantoprazole 40 mg EC Tab PO SCH (06:35)
[2018-07-20] MEDS: Lactulose 10 Gm/15 mL 30mL UDC PO SCH (09:02)
[2018-07-20] MEDS: Ferrous Sulfate 325 MG TAB PO SCH (09:04)
[2018-07-20] MEDS: Multivitamin Tab PO SCH (09:05)
[2018-07-20] MEDS: Budesonide 0.5 Mg/2 mL Ud HHN SCH ×2 (09:14→19:36)
--- NOTE | 2018-07-20 13:22 | Progress Notes ---
DATE: 07/20/2018 SUBJECTIVE: Chart reviewed and the patient interviewed. Also discussed the patient's condition with the staff and reviewed records and labs. The patient is still in a depressed mood and seems to be preoccupied. She also is suspicious and paranoid. The patient also is guarded. Otherwise, the patient is compliant with taking her medications with no side effects of medications and the patient continues to be on oxygen. ASSESSMENT: The patient is still depressed and still in a depressed mood and still paranoid. TREATMENT PLAN: Continue to monitor her behavior and condition closely. Also continue adjusting psychotropic medications and followup. [facility]# [id number]
[2018-07-20] MEDS: Albuterol Nebulizer 2.5mg/3mL HHN SCH (19:36)
[2018-07-20] MEDS: Atorvastatin Calcium 10 MG TAB PO SCH (20:43)
[2018-07-21] MEDS: Albuterol Nebulizer 2.5mg/3mL HHN SCH ×4 (00:52→19:16)
--- NOTE | 2018-07-21 01:07 | Psychiatric Evaluation ---
DATE OF SERVICE: INTIAL EVALUATION PATIENT'S AGE: 63. SEX: Female. PHYSICIAN: Dr. Patino. CHIEF COMPLAINT: Depression and agitation. HISTORY OF PRESENT ILLNESS: The patient is a 63-year-old female, who was in [facility] and then discharged to ICU and then back because of continued agitation. The patient has history of hypertension, seizure disorder, and bronchial asthma. The patient currently seems to be calmer and still needs to be monitored closely. PAST PSYCHIATRIC HISTORY: The patient has a history of multiple psychiatric hospitalizations for agitation and psychosis. Also, has history of schizophrenia. PAST MEDICAL HISTORY: The patient has history of hypertension, seizure disorder, COPD, and bronchial asthma. SOCIAL HISTORY: The patient lives in [facility]. The patient was having history of alcohol or drug use. ALLERGIES: No known allergies. MENTAL STATUS EXAMINATION: The patient appears her stated age. Anxious. Sad affect. In a depressed mood. Thought processes mainly goal directed. The patient denies any hallucinations or delusions and she denies any thoughts of suicide or homicide. She is alert and oriented to time, place, person, and situation. Intact immediate, recent and remote memories. Fair insight and judgment. ASSESSMENT: PRIMARY DIAGNOSIS: Depressive mood disorder, unspecified. TREATMENT PLAN: Continue monitoring her behavior closely. Also, continue adjusting psychotropic medications and followup. ESTIMATED LENGTH OF STAY: 3-5 days. THE PATIENT'S STRENGTHS AND WEAKNESSES: The patient is cooperative with treatment. Weaknesses is his agitation and poor impulse. AFTER DISCHARGE PLAN: The patient will return to [facility] and outpatient treatment will follow there. [facility]# [id number]
[2018-07-21] MEDS: Pantoprazole 40 mg EC Tab PO SCH (06:39)
[2018-07-21] MEDS: Budesonide 0.5 Mg/2 mL Ud HHN SCH ×2 (07:28→19:16)
[2018-07-21] MEDS: Ferrous Sulfate 325 MG TAB PO SCH (09:24)
[2018-07-21] MEDS: Multivitamin Tab PO SCH (09:26)
[2018-07-21] MEDS: Lactulose 10 Gm/15 mL 30mL UDC PO SCH (09:41)
[2018-07-21] MEDS: Atorvastatin Calcium 10 MG TAB PO SCH (20:54)
--- NOTE | 2018-07-22 00:14 | Discharge Summary ---
DATE OF DISCHARGE: 07/21/2018 DATE OF DISCHARGE: 07/21/2018. AGE: 63. SEX: Female. PHYSICIAN: Dr. Patino. FINAL DIAGNOSIS: PRIMARY DIAGNOSIS: Depressive mood disorder, unspecified. REASON FOR HOSPITALIZATION: The patient was admitted to the hospital because of increased depression and agitation and the patient while was in [facility] was having difficulty breathing and the patient was transferred to ICU where she was medically stabilized and then to [facility]. The patient was anxious at the beginning of her hospitalization, but later on the patient was calm and cooperative and was not suicidal or homicidal. The patient also was compliant with taking medications with no side effects. The patient was given Neurontin in a dose of 300 mg twice a day. She also was given Seroquel in the dose of 37.5 mg twice a day. The patient was not suicidal or homicidal, and she was easier to redirect her, and the patient was discharged from the hospital. Also, because of difficult sleeping the patient was given trazodone 100 mg at bedtime. AFTER DISCHARGE PLAN: The patient discharged from the hospital and went to [facility] in [place] and plan for followup there. EXPECTED OUTCOME AFTER DISCHARGE: Fair if the patient continued to take her psychotropic medications and follow up with her treatment plans. [facility]# [id number]
[2018-07-22] MEDS: Albuterol Nebulizer 2.5mg/3mL HHN SCH ×2 (00:22→07:17)
[2018-07-22] MEDS: Pantoprazole 40 mg EC Tab PO SCH (06:45)
[2018-07-22] MEDS: Budesonide 0.5 Mg/2 mL Ud HHN SCH (07:17)
[2018-07-22] MEDS: Lactulose 10 Gm/15 mL 30mL UDC PO SCH (08:20)
[2018-07-22] MEDS: Multivitamin Tab PO SCH (08:53)
[2018-07-22] MEDS: Ferrous Sulfate 325 MG TAB PO SCH (08:54)
--- NOTE | 2018-07-22 15:34 | Progress Notes ---
DATE: 07/21/2018 SUBJECTIVE: The patient was supposed to be discharged yesterday to [facility], but the patient for unknown reason did not discharge. The patient admitted ____ because I have not dictated the discharge yesterday. The patient is anxious and is still waiting for her discharge. [facility]# [id number]
--- NOTE | 2018-07-22 15:43 | Discharge Summary ---
DATE OF DISCHARGE: 07/22/2018 AGE: 63. SEX: Female. PHYSICIAN: Dr. Patino. HOSPITAL COURSE: I dictated discharge summary yesterday and the patient was supposed to be discharged yesterday to [facility], but the patient was not discharged for unknown reason and does not even called to cancel her discharge. The patient hopefully will be discharged today to [facility] and no change in the discharge summary that I dictated yesterday. The patient's condition remains the same. [facility]# [id number]
== END 2018-07-22 11:30 | DRG 881 ==
LOC: GERO 21:28
PROVIDERS: ADMIT Psychiatry & Neurology Psychiatry; ATTEND Psychiatry & Neurology Psychiatry
DX: F32.9 Major depressive disorder, single episode, unspecified (principal); E78.00 Pure hypercholesterolemia, unspecified; G40.909 Epilepsy, unspecified, not intractable, without status epilepticus; G62.9 Polyneuropathy, unspecified; Z60.2 Problems related to living alone; J44.9 Chronic obstructive pulmonary disease, unspecified; I10 Essential (primary) hypertension
CPT/HCPCS: 36415-UA; 80061-TC; 83036-90; 94640; 94760; G0410; J7613; Z7610